=== PATIENT | female | born 1990 | race African-American/Black ===

== ENCOUNTER 2020-06-28 08:39 | Emergency (ER) | payer MEDICAID, OTHER ==
[~2020-06-28] VITALS: Ht 177.8 cm; Wt 99.8 kg
[2020-06-28] MEDS ORDERED: KETOROLAC TROMETH 60MG/2ML VIAL IM ONE (12:30)
[2020-06-28] MEDS ORDERED: METHOCARBAMOL 500 MG TAB PO ONE (12:30)
[2020-06-28 13:00] VITALS: BP 131/69
== END 2020-06-28 13:37 | disposition home or self-care (01) ==
LOC: EDBD 08:39 → ER 08:39
DX: M54.6 Pain in thoracic spine (principal); R25.2 Cramp and spasm; Z88.1 Allergy status to other antibiotic agents; V89.2XXA Person injured in unspecified motor-vehicle accident, traffic, initial encounter; Y93.89 Activity, other specified; Y92.89 Other specified places as the place of occurrence of the external cause; Y99.8 Other external cause status
CPT/HCPCS: 71045; 72040; 72070; 96372; 99284; J1885